=== PATIENT | male | born 1955 | race Caucasian/White ===

== ENCOUNTER 2016-04-06 18:11 | Emergency (ER) | payer MEDICARE, OTHER ==
[~2016-04-06 18:11] MED LIST: FLUO-1 PO; LURA40 OR
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
[2016-04-06 19:13] VITALS: BP 128/74; PULSE 55; RESP 18; TEMP 98.4; O2SAT 96
[2016-04-06 19:36] LABS: AUTOMATED NEUTROPHIL # 3.2 TH/MM3 (1.8-7.7); BASOPHIL # 0.1 TH/MM3 (0-0.2); EOSINOPHIL # 0.5 TH/MM3 (0-0.4); EOSINOPHIL % 9.4 % (0.0-4.0); HEMO FLAGS DIFF FINAL; LYMPH % 19.7 % (9.0-44.0); LYMPHOCYTE # 1.1 TH/MM3 (1.0-4.8); MEAN CELL VOLUME 93.6 FL (80.0-100.0); MEAN CORPUSCULAR HEMOGLOBIN 31.7 PG (27.0-34.0); MEAN CORPUSCULAR HGB CONC 33.9 % (32.0-36.0); MONO % 11.5 % (0.0-8.0); NEUT % 58.4 % (16.0-70.0); PLATELET COUNT 133 TH/MM3 (150-450); RED BLOOD COUNT 4.06 MIL/MM3 (4.50-5.90); WHITE BLOOD COUNT 5.5 TH/MM3 (4.0-11.0)
[2016-04-06 19:50] LABS: ANION GAP 8 MEQ/L (5-15); AST (GOT) 11 U/L (15-37); BICARBONATE 24.7 MEQ/L (21.0-32.0); BLOOD UREA NITROGEN 11 MG/DL (7-18); CHLORIDE 101 MEQ/L (98-107); GLOMERULAR FILTRATION RATE 114 ML/MIN (>89); POTASSIUM 3.6 MEQ/L (3.5-5.1); SODIUM (NA) 134 MEQ/L (136-145)
[2016-04-06 19:53] LABS: ALKALINE PHOSPHATASE 103 U/L (45-117); ALT (GPT) 29 U/L (12-78); TOTAL BILIRUBIN ADULT 0.1 MG/DL (0.2-1.0)
[2016-04-06 21:03] LABS: AMPHETAMINE, URINE NEG (NEG); BARBITURATES, URINE POS (NEG); COCAINE, URINE NEG (NEG)
[2016-04-08] MEDS ORDERED: MILKSUS PO (22:18)
[2016-04-08] MEDS ORDERED: LORA-474 PO ×2 (22:18)
[2016-04-08] MEDS ORDERED: PHEN-414 PO (22:18)
[2016-04-08] MEDS ORDERED: DOCU100C PO (22:18)
[2016-04-08] MEDS ORDERED: ACET1CAP18 PO (22:18)
[2016-04-08] MEDS ORDERED: LEVE500T8 PO (22:18)
[2016-04-08] MEDS ORDERED: SERT-129 PO (22:18)
[2016-04-08] MEDS ORDERED: ZYPR2.5T2 PO (22:18)
== END 2016-04-07 10:39 | disposition home or self-care (01) ==
LOC: NEPA 18:11
DX: R46.89 Other symptoms and signs involving appearance and behavior (principal); R45.851 Suicidal ideations; Z87.442 Personal history of urinary calculi
CPT/HCPCS: 80053; 80307; 85025; 99283

== ENCOUNTER 2016-04-08 16:32 | Emergency (ER) | payer MEDICARE, MEDICAID ==
[~2016-04-08] VITALS: Ht 167.6 cm; Wt 68.0 kg
[2016-04-08 16:49] VITALS: BP 126/68; PULSE 67; RESP 16; TEMP 97.8; O2SAT 96
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
[2016-04-08 18:30] VITALS: BP 149/81; PULSE 60; RESP 18; TEMP 98.6; O2SAT 96
[2016-04-08] MEDS ORDERED: DOCU100C PO (22:18)
[2016-04-08] MEDS ORDERED: ACET1CAP18 PO (22:18)
[2016-04-08] MEDS ORDERED: PHEN-414 PO (22:18)
[2016-04-08] MEDS ORDERED: SERT-129 PO (22:18)
[2016-04-08] MEDS ORDERED: LEVE500T8 PO (22:18)
[2016-04-08] MEDS ORDERED: ZYPR2.5T2 PO (22:18)
[2016-04-08] MEDS ORDERED: MILKSUS PO (22:18)
[2016-04-08] MEDS ORDERED: LORA-474 PO ×2 (22:18)
[2016-04-08 22:22] LABS: AMPHETAMINE, URINE NEG (NEG); BARBITURATES, URINE POS (NEG); COCAINE, URINE NEG (NEG)
[2016-04-08 23:29] VITALS: BP 151/84; PULSE 87; RESP 18; O2SAT 98
[2016-04-09] MEDS ORDERED: levETIRAcetam 500 MG TAB PO ONE ×2 (02:15→11:15)
[2016-04-09] MEDS ORDERED: PHENobarbital 32.4 MG TAB PO ONE ×2 (02:15→11:15)
[2016-04-09 02:29] VITALS: BP 124/65; PULSE 62; RESP 18; TEMP 97.4; O2SAT 99
[2016-04-09 06:29] VITALS: BP 125/68; PULSE 70; RESP 18; TEMP 97.8; O2SAT 96
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
[2016-04-09 15:07] VITALS: BP 126/70; PULSE 50; RESP 18
== END 2016-04-09 17:15 | disposition home or self-care (01) ==
LOC: NEPJ 16:32
DX: F63.81 Intermittent explosive disorder (principal); F10.10 Alcohol abuse, uncomplicated; F19.10 Other psychoactive substance abuse, uncomplicated; R45.851 Suicidal ideations
CPT/HCPCS: 80184; 80307; 99284